=== PATIENT | female | born 1960 | race Caucasian/White ===

== ENCOUNTER → 2019-11-14 | Day surgery (SDC) | payer OTHER ==
--- NOTE | 2019-11-09 16:49 | Diagnostic Imaging Report ---
EXAMINATION: CHEST 2 VIEWS INDICATION: Pre-operative COMPARISON: None FINDINGS: LINES/TUBES:None LUNGS:The lungs are well-inflated. No focal consolidation or pulmonary edema. PLEURA:No pleural effusion or pneumothorax. MEDIASTINUM:The cardiomediastinal silhouette appears normal in size and shape. BONES/SOFT TISSUES:No acute osseous injury. ABDOMEN:No free air under the diaphragm. IMPRESSION: No focal pneumonia or pulmonary edema. Signed by: Florecita Rosales MD on 11/09/2019 4:47 PM
[~2019-11-14] MED LIST: ARMOUR THYROID60 MG PO; ASPIRIN81 MG PO; BISOPROLOL-HCT1 EAC2 PO; DEXAMETHASONE SOD PHOS INJ 4 MG/ML VIAL ONE; FENTANYL CITRATE/PF 100MCG/2 ML INJ ONE; IRBESARTAN75 MG PO; LIDOCAINE 1% W/EPINEPHRINE 20 ML VIAL ONE; LIDOCAINE HCL 2% LOCAL INJ 5 ML SDV VIAL INJ ONE; MIDAZOLAM HCL 2 MG/2 ML VIAL ONE; PRILOSEC OTC20 MG PO; PROPOFOL IV EMULSION 10 MG/ML 20 ML VIAL ONE; ROCURONIUM BROMIDE 10 MG/ML 5ML VIAL ONE; SEVOFLURANE INHAL SOLN 250 ML PEN BTL ONE; ZOLPIDEM TARTRAT5 MG PO
--- OUTSIDE RECORDS SUMMARY | 2019-11-14 06:31 | XMS REPORT ---
Author Author [facility] Address Unknown Phone Unavailable Care Team Providers [place] Dispatch Supervisor Name Role Phone Theron TANG Unavailable Unavailable Problems This patient has no known problems. Allergies, Adverse Reactions, Alerts This patient has no known allergies or adverse reactions. Medications This patient has no known medications. Results Test Description Test Time Test Comments Text Results Atomic Results Result Comments CHEST 2 VIEWS 2019-11-09 16:46:00 [place] [id number] Patient Name: VALERIO HAILE MR #: [id number] : 1960 Age/Sex: 59/F Req #: [id number] Adm Physician: Ordered by: ANGELIC TANG MD Report #: [id number] Location: OR Room/Bed: Procedure: [id number] DX/CHEST 2 VIEWS Exam Date: Exam Time: REPORT STATUS: Signed EXAMINATION: CHEST 2 VIEWS INDICATION: Pre-operative COMPARISON: None FINDINGS: LINES/TUBES:None LUNGS:The lungs are well- inflated. No focal consolidation or pulmonary edema. PLEURA:No pleural effusion or pneumothorax. MEDIASTINUM:The cardiomediastinal silhouette appears normal in size and shape. BONES/SOFT TISSUES:No acute osseous injury. ABDOMEN:No free air under the diaphragm. IMPRESSION: No focal pneumonia or pulmonary edema. Signed by: Graham Rosales MD on 11/09/2019 4:47 PM Dictated By: GRAHAM ROSALES MD 46 Transcribed By: TROY on 11/09/191646 COPY TO: ANGELIC TANG MD
--- NOTE | 2019-11-14 07:15 | NUR ---
SPIRITUAL CARE - Pre-Surgery Assessment: Pt in bed. Pt reported supportive attention from family and friends. Intervention: I provided pastoral presence, hospitality, sympathetic listening, and prayer. I acquainted pt with availability of bottling line operator while hospitalized. Outcome: Pt expressed appreciation for visit. No need for follow up indicated at this time. PETRONA [facility] Spiritual Care Department O: [phone] Pager: [phone] ([phone] number calling from)
[2019-11-14 10:55] VITALS: BP 148/86
--- NOTE | 2019-11-14 11:11 | Operative Report ---
DATE OF PROCEDURE: 11/14/2019 SURGEON: Attila Mcmillan MD CHIEF COMPLAINT: Lesion in both ala. POSTOPERATIVE DIAGNOSIS: Lesion in both ala. OPERATIVE PROCEDURE: Excision of left ala lesion around 11 o'clock with appropriate closure and excision of lesion of the right ala about 11 o'clock with appropriate closure with nasal endoscopy. ANESTHESIA: Anesthesiology Group. INDICATIONS: A 59-year-old female, was noted to have a lesion in the left ala around 11 o'clock for about 2 years. The lesion has been irritating to the patient. The lesion did not go away. Recently, she also noticed a lesion in the right ala around 11 o'clock with some irritation, it was decided excision or biopsy of the lesion with appropriate closure and nasal endoscopy, and other necessary procedure will be beneficial for her. The patient was taken to the operating room, put under general anesthesia, endotracheally intubated. The left ala was approached first. Using a rigid nasal endoscopy, nasal cavity and nasopharynx was examined, lot of mucus was noted in the nose. Some mucopus was noted. The patient recently has history of allergies. The ala was examined. Some mucosal changes were noted in the left ala around the 11 o'clock. No abnormality was noted. The mucosal changes noted around the right ala area. The left ala was approached first. Using a 2 prong skin hook, the ala was everted. The area was marked out initially with a marking pen. The area was excised. Size of the defect was about 0.5 cm. Irritation was noted on the skin. The skin area was excised. Underlying collagen was noted to be likely the cause of irritation. Part of the lower lateral cartilage was trimmed and sent for permanent section. Closure of the area was undertaken. The mucosal flap was elevated and this was advanced and closed on the defect using a buried fold chromic suture in interrupted fashion. The right ala area was examined. The area was examined with the patient prior to before at the preop area. The area was marked out. No obvious skin changes were noted. No obvious lesion was noted from the subcutaneous area. Some skin irritation was noted in this area. This area was injected with 1% Xylocaine with 1:100,000 epinephrine for hemostasis. The area of concern was excised and sent for permanent section. Closure of the area was undertaken. The area was advanced in the midline and closed on itself using 4-0 chromic suture in interrupted fashion. Advancement flap of the mucosa was done. At the end of procedure, it was noted that the shape of ala and the nasal appeared did not change. The patient tolerated the above procedure well with minimal blood loss. She was given 20 mg of Decadron intraoperatively. The patient was able to be transferred to recovery room in stable condition. MD JUNIE Mckeon/TORIE /[id number]
== END | disposition home or self-care (01) ==
LOC: OR 06:29
PROVIDERS: ATTEND Otolaryngology Otolaryngology/Facial Plastic Surgery
DX: J34.89 Other specified disorders of nose and nasal sinuses (principal); Z91.09 Other allergy status, other than to drugs and biological substances; I10 Essential (primary) hypertension; K76.0 Fatty (change of) liver, not elsewhere classified; Z01.810 Encounter for preprocedural cardiovascular examination; Z01.818 Encounter for other preprocedural examination; Z79.82 Long term (current) use of aspirin
CPT/HCPCS: 14060 ×2; 30117 ×2; 71046; 88305; 93005; J1100; J2001; J2250; J2704; J3010